=== PATIENT | male | born 1990 | race Caucasian/White ===

== ENCOUNTER 2016-04-02 10:57 | Emergency (ER) | payer OTHER ==
[2016-04-02 11:21] VITALS: TEMP 97.5
--- NOTE | 2016-04-02 11:42 | UCPHY ---
H & P Time Seen by Provider: 04/02/16 11:14 Patient Type: Established HPI/ROS: 25-year-old male presents complaining of chest pain for approximately 3 weeks. He states he missed several doses of his clonazepam about 3 weeks ago and at that time he had multiple chest muscle spasms. He states despite restarting his clonazepam he continues to have diffuse chest pain radiating to his back. He also has a history of rectal bleeding associated with polyps for which she has had multiple prior colonoscopies in states he is due for a new colonoscopy. He would like a referral to Gastroenterology for that procedure. He denies fevers or chills he denies cough he denies heavy lifting or injury to his chest. He states when he does yoga he is able to slowly stretch his chest out and sometimes relieve the chest pain. He does not take ibuprofen or NSAIDs because of his prior issues with rectal bleeding. Review of systems General no fever no chills no weakness HEENT no eye pain no eye discharge. No eye redness, no sore throat Respiratory no cough, no shortness of breath Cardiac Positivechest pain, no peripheral edema GI no abdominal pain, no diarrhea, no constipation, no nausea, no vomiting, more frequent rectal bleeding no flank pain, no hematuria, no dysuria Musculoskeletal no myalgias, no joint pain Heme no easy bruising, no easy bleeding Endo no polyuria, no polydipsia Skin no rashes, no pruritus Neuro no syncope, no dizziness, no headaches Psych is no suicidal ideation, no homicidal ideation Past Medical/Surgical History: colon polyps with rectal bleeding severe anxiety Social History: denies alcohol and drug use Smoking Status: Current every day smoker Physical Exam: 25-year-old male alert and oriented, flat affect, nontoxic appearance, afebrile HEENT atraumatic normocephalic, extraocular muscles intact, anicteric Oropharynx negative for erythema negative exudate, tolerating her own secretions Neck supple no meningismus Chest diffusely tender to palpation, no rash no ecchymoses no swelling, no crepitus Lungs clear to auscultation bilaterally Heart regular rate and rhythm without murmur rub or gallop Abdomen nondistended normoactive bowel sounds soft nontender Back no CVA tenderness, no step-offs, no spinal tenderness Extremities no cyanosis clubbing or edema Neuro alert and oriented, no focal deficits Constitutional: Initial Vital Signs Temperature (C) 36.4 C 04/02/16 11:05 Heart Rate 98 04/02/16 11:05 Respiratory Rate 18 04/02/16 11:05 Blood Pressure 141/71 H 04/02/16 11:05 O2 Sat (%) 96 04/02/16 11:05 O2 Delivery Mode Room Air Allergies/Adverse Reactions: No Known Allergies Allergy (Unverified 04/22/15 13:18) Home Medications: Medication Instructions Recorded CLONAZEPAM 04/22/15 Medical Decision Making - Diagnostics EKG Interpretation: EKG normal sinus rhythm ED Course/Re-evaluation: patient seen and evaluated for chest pain of 3 weeks duration worse with movement worse with inspiration and exquisitely tender to palpation EKG normal sinus rhythm chest x-ray negative troponin negative D-dimer negative sed rate normal impression /plan 1. musculoskeletal chest pain, possible costochondritis versus chest muscle spasm may take acetaminophen as needed for pain return if worsening, specifically high fever /severe pain/difficulty breathing 2. increasing rectal bleeding over the last several months patient be referred to Gastroenterology - Data Points Laboratory Results: Laboratory Results 04/02/16 11:30 04/02/16 11:30 04/02/16 11:30 WBC 3.76 L 10^3/uL (3.80-9.50) RBC 5.13 10^6/uL (4.40-6.38) Hgb 15.3 g/dL (13.7-17.5) Hct 44.7 % (40.0-51.0) MCV 87.1 fL (81.5-99.8) MCH 29.8 pg (27.9-34.1) MCHC 34.2 g/dL (32.4-36.7) RDW 12.6 % (11.5-15.2) Plt Count 225 10^3/uL (150-400) MPV 9.5 fL (8.7-11.7) Neut % (Auto) 55.8 % (39.3-74.2) Lymph % (Auto) 31.9 % (15.0-45.0) Morgan % (Auto) 8.8 % (4.5-13.0) Eos % (Auto) 2.7 % (0.6-7.6) Baso % (Auto) 0.5 % (0.3-1.7) Nucleat RBC Rel Count 0.0 % (0.0-0.2) Absolute Neuts (auto) 2.10 10^3/uL (1.70-6.50) Absolute Lymphs (auto) 1.20 10^3/uL (1.00-3.00) Absolute Monos (auto) 0.33 10^3/uL (0.30-0.80) Absolute Eos (auto) 0.10 10^3/uL (0.03-0.40) Absolute Basos (auto) 0.02 10^3/uL (0.02-0.10) Absolute Nucleated RBC 0.00 10^3/uL (0-0.01) Immature Gran % 0.3 % (0.0-1.1) Immature Gran # 0.01 10^3/uL (0.00-0.10) ESR 4 MM/HR (0-15) PT 13.3 SEC (12.0-15.0) INR 1.03 (0.83-1.16) APTT 32.0 SEC (23.0-38.0) D-Dimer < 0.27 ug/mLFEU (0.00-0.50) Sodium 142 mEq/L (134-144) Potassium 4.0 mEq/L (3.5-5.2) Chloride 105 mEq/L (97-110) Carbon Dioxide 25 mEq/l (22-31) Anion Gap 12 mEq/L (8-16) BUN 10 mg/dL (7-23) Creatinine 1.1 mg/dL (0.7-1.3) Estimated GFR > 60 Glucose 101 H mg/dL (70-100) Calcium 9.3 mg/dL (8.5-10.4) Total Bilirubin 0.8 mg/dL (0.1-1.4) AST 22 IU/L (17-59) ALT 33 IU/L (21-72) Alkaline Phosphatase 109 IU/L (38-126) Creatine Kinase 64 IU/L (0-224) Total Protein 7.1 g/dL (6.3-8.2) Albumin 4.1 g/dL (3.5-5.0) Departure - Departure Disposition: Home, Routine, Self-Care Clinical Impression: Costochondral chest pain, History of rectal bleeding, Scoliosis Condition: Good Instructions: Costochondritis (ED) Referrals: NONE *PRIMARY CARE P,. [Primary Care Provider] - As per Instructions Marcelino Kidd MD [Medical Doctor] - As per Instructions [facility] [Provider Group] - As per Instructions Stand Alone Forms: Work Excuse - PQRS PQRS Measurement: na
[2016-04-02 11:45] LABS: % IMMATURE GRANULYOCYTES 0.3 % (0.0-1.1); ABSOLUTE IMMATURE GRANULOCYTES 0.01 10^3/uL (0.00-0.10); ADD DIFF? NO; ADD MORPH? NO; ADD SCAN? NO; ATYPICAL LYMPHOCYTE FLAG 20 (0-99); FRAGMENT RBC FLAG 0 (0-99); HEMATOCRIT 44.7 % (40.0-51.0); HEMOGLOBIN 15.3 g/dL (13.7-17.5); LEFT SHIFT FLG 0 (0-99); LIPEMIA HEMOLYSIS FLAG 90 (0-99); MEAN CELL HEMOGLOBIN 29.8 pg (27.9-34.1); MEAN CELL HEMOGLOBIN CONCENTR. 34.2 g/dL (32.4-36.7); MEAN CELL VOLUME 87.1 fL (81.5-99.8); MEAN PLATELET VOLUME 9.5 fL (8.7-11.7); PLATELET CLUMPS FLAG 0 (0-99); PLATELET COUNT 225 10^3/uL (150-400); RED BLOOD CELL COUNT 5.13 10^6/uL (4.40-6.38); RED CELL DISTRIBUTION WIDTH 12.6 % (11.5-15.2)
[2016-04-02 11:50] LABS: INR 1.03 (0.83-1.16); PROTIME(PATIENT) 13.3 SEC (12.0-15.0)
[2016-04-02 11:56] LABS: SEDIMENTATION RATE 4 MM/HR (0-15)
[2016-04-02 11:58] LABS: ALANINE AMINOTRANSFERASE 33 IU/L (21-72); ALBUMIN 4.1 g/dL (3.5-5.0); ALKALINE PHOSPHATASE 109 IU/L (38-126); ANION GAP 12 mEq/L (8-16); ASPARTATE AMINOTRANSFERASE 22 IU/L (17-59); BILIRUBIN,TOTAL 0.8 mg/dL (0.1-1.4); CALCIUM 9.3 mg/dL (8.5-10.4); CARBON DIOXIDE 25 mEq/l (22-31); CHLORIDE 105 mEq/L (97-110); CREATININE 1.1 mg/dL (0.7-1.3); GLOMERULAR FILTRATION RATE > 60; GLUCOSE 101 mg/dL (70-100); SODIUM 142 mEq/L (134-144); TOTAL PROTEIN 7.1 g/dL (6.3-8.2)
--- NOTE | 2016-04-02 12:16 | DX ---
Chest, Two Views 1143 hours History: Chest pain. Comparison: None. Findings: Cardiac silhouette is within normal range. No pneumonia, congestive heart failure, pleura l effusion, or pneumothorax. Impression: No acute pulmonary disease.
[2016-04-02 12:45] VITALS: BP 106/65; PULSE 66; RESP 14; O2SAT 96
--- NOTE | 2016-04-02 13:23 | CPEKG ---
Heart Rate: 79 RR Interval: 759 P-R Interval: 148 QRSD Interval: 104 QT Interval: 396 QTC Interval: 455 P Mckinney: 61 QRS Mckinney: 54 T Wave Mckinney: 47 EKG Severity - NORMAL ECG - EKG Impression: SINUS RHYTHM Electronically Signed By: Marcin Schumacher 03-Apr-2016 16:53:00
== END 2016-04-02 12:45 | disposition home or self-care (01) ==
LOC: CED 10:57
DX: M94.0 Chondrocostal junction syndrome [Tietze] (principal); K62.5 Hemorrhage of anus and rectum; F41.9 Anxiety disorder, unspecified; Z72.0 Tobacco use
CPT/HCPCS: 71020-PO; 80053-PO; 82550-PO; 85025-PO; 85378-PO; 85610-PO; 85652-PO; 85730-PO; 93010-PO; 99215-PO; G0463-PO

== ENCOUNTER 2016-05-04 11:14 | Emergency (ER) | payer SELFPAY ==
[2016-05-04 11:33] VITALS: BP 110/74; PULSE 86; RESP 18; TEMP 98.2; O2SAT 97
[2016-05-04] MEDS ORDERED: DEXAMETHASONE 4 MG TAB PO ONE (12:10)
--- NOTE | 2016-05-04 12:10 | EDPHY ---
H & P Stated Complaint: sore throat, cough, fever since friday Time Seen by Provider: 05/04/16 11:37 HPI/ROS: Chief complaint: Sick for the last 5 days History of present illness: This is a 25-year-old male who presents to the emergency department reporting he has been sick for the last 5 days. He primarily reports a sore throat. He has had fever and cough is well. he is using [id number] cold medications with minimal improvement. Denies other associated signs or symptoms including no difficulty breathing, no rash. - Personal History Current Tetanus/Diphtheria Vaccine: No Current Tetanus Diphtheria and Acellular Pertussis (TDAP): No - Medical/Surgical History Hx Asthma: Yes Hx Chronic Respiratory Disease: No Hx Diabetes: No Hx Cardiac Disease: No Hx Renal Disease: No Hx Cirrhosis: No Hx Alcoholism: No Hx HIV/AIDS: No Hx Splenectomy or Spleen Trauma: No Other PMH: PSH: colonoscopy; EGD; wisdom teeth;. PMH: scoliosis; L3-L4 fx; L wrist fx x2; R wrist fx x 2; L ankle inj; anxiety - Social History Smoking Status: Former smoker - Physical Exam Exam: General Appearance: Alert, nontoxic. Eyes: Pupils equal and round no injection. ENT: Tympanic membranes, external auditory canals, external ears and surrounding soft tissue including over the mastoids are unremarkable. Nasopharynx is not injected. There is no rhinorrhea. Oropharynx is injected. There is mild edema. There is trace exudate. Left tonsil is slightly more full than right tonsil. The uvula is midline. No elevation of the tongue. There is no hoarseness, no drooling, no trismus, no stridor. Respiratory: Chest is non tender, lungs are clear to auscultation. Cardiac: regular rate and rhythm Musculoskeletal: Neck is supple and non tender. Extremities have full range of motion and are non tender. Skin: No rashes or lesions. Neurological: No meningismus. Constitutional: Initial Vital Signs Temperature (C) 36.8 C 05/04/16 11:31 Heart Rate 86 05/04/16 11:31 Respiratory Rate 18 05/04/16 11:31 Blood Pressure 110/74 05/04/16 11:31 O2 Sat (%) 97 05/04/16 11:31 O2 Delivery Mode Room Air Allergies/Adverse Reactions: No Known Allergies Allergy (Unverified 04/22/15 13:18) Home Medications: Medication Instructions Recorded CLONAZEPAM 04/22/15 ALPRAZolam 05/04/16 AMOXICILLIN TRIHYDRATE [Amoxil] 875 mg PO BID 10 Days 05/04/16 Hydrocodone/Acetaminophen [Lortab 10 ml PO Q6 #120 ml 05/04/16 10 mg-300 mg/15 ml Elxr] Medical Decision Making ED Course/Re-evaluation: Patient seen under the supervision of my secondary supervising physician Dr. Ray Jacome. Patient presents to the emergency department for persistent cold symptoms, primarily a sore throat. On presentation he is nontoxic. Strep swab is positive. There is slight fullness of the left tonsils as compared to the right although, I do not believe this represents no overt peritonsillar abscess - the oropharynx is largely patent, there is no hoarseness, no drooling, no trismus or stridor. He is given Decadron for symptom control. He is started on amoxicillin. Home care is discussed. He is asked to follow up with an Ears Nose and Throat doctor for recheck. Strict return precautions are given. Patient voiced understanding and agreement with plan. Differential Diagnosis: Included but not limited to pharyngitis, strep pharyngitis, tonsillitis, peritonsillar abscess, retropharyngeal abscess, Elliott's angina, meningitis - Data Points Laboratory Results: 05/04/16 11:42 Group A Strep Screen POSITIVE H (NEGATIVE) Medications Given: Discontinued Medications Dexamethasone (Decadron) 10 mg PO EDNOW ONE Stop: 05/04/16 12:11 Last Admin: 05/04/16 12:16 Dose: 10 mg Departure - Departure Disposition: Home, Routine, Self-Care Clinical Impression: Strep pharyngitis Condition: Good Instructions: Strep Throat (ED) Additional Instructions: Follow-up with the primary care doctor or ears Nose and Throat doctor for continued evaluation and care If symptoms worsen or new symptoms develop return to the emergency department for recheck Referrals: NONE *PRIMARY CARE P,. [Primary Care Provider] - As per Instructions Vanessa Billingsley MD [Medical Doctor] - As per Instructions [facility] [Outside] - As per Instructions Prescriptions: AMOXICILLIN TRIHYDRATE [Amoxil] 875 mg PO BID 10 Days Hydrocodone/Acetaminophen [Lortab 10 mg-300 mg/15 ml Elxr] 10 ml PO Q6 #120 ml
== END 2016-05-04 12:30 | disposition home or self-care (01) ==
DX: J02.0 Streptococcal pharyngitis (principal); J45.909 Unspecified asthma, uncomplicated; Z87.891 Personal history of nicotine dependence

== ENCOUNTER 2016-05-14 07:29 | Emergency (ER) | payer MEDICAID, OTHER ==
[2016-05-14 07:33] VITALS: BP 104/67; PULSE 71; RESP 16; TEMP 97.5; O2SAT 92
--- NOTE | 2016-05-14 07:35 | EDPHY ---
H & P Stated Complaint: dx w/ strep last week, lost his Rx- not better Time Seen by Provider: 05/14/16 07:34 HPI/ROS: CHIEF COMPLAINT: Persistent throat pain, cough, nasal irritation HISTORY OF PRESENT ILLNESS: The patient presents to the ED with complaints of persistent throat pain following a diagnosis of strep pharyngitis 2 weeks ago. Additionally the patient has developed a harsh cough over the past several days. He also complains of bilateral nasal irritation. The patient was given a prescription for amoxicillin which he took for 2-3 days before he unfortunately lost the prescription. The patient has been using Tylenol and ibuprofen for control of his pain which has been minimally effective. The patient does have some asymmetric swelling in the left posterior pharynx. The patient denies fever or significant trismus. REVIEW OF SYSTEMS: A comprehensive 10 point review of systems is otherwise negative aside from elements mentioned in the history of present illness. Source: Patient Exam Limitations: No limitations - Personal History Current Tetanus/Diphtheria Vaccine: Unsure Current Tetanus Diphtheria and Acellular Pertussis (TDAP): Unsure - Medical/Surgical History Hx Asthma: Yes Hx Chronic Respiratory Disease: No Hx Diabetes: No Hx Cardiac Disease: No Hx Renal Disease: No Hx Cirrhosis: No Hx Alcoholism: No Hx HIV/AIDS: No Hx Splenectomy or Spleen Trauma: No Other PMH: PSH: colonoscopy; EGD; wisdom teeth;. PMH: scoliosis; L3-L4 fx; L wrist fx x2; R wrist fx x 2; L ankle inj; anxiety - Social History Smoking Status: Never smoked Alcohol Use: None - Physical Exam Exam: General Appearance: Alert, no distress Eyes: Pupils equal and round no pallor or injection ENT, Mouth: Left tonsillar hypertrophy, minimal erythema, scant exudate, no evidence of peritonsillar mass. Nasal mucosa erythematous. Respiratory: There are no retractions, lungs are clear to auscultation Cardiovascular: Regular rate and rhythm Gastrointestinal: Abdomen is soft and nontender, no masses, bowel sounds normal Neurological: A&O, normal motor function, normal sensory exam, normal cranial nerves Skin: Warm and dry, no rashes Musculoskeletal: Neck is supple nontender Extremities: symmetrical, full range of motion Constitutional: Initial Vital Signs Temperature (C) 36.4 C 05/14/16 07:30 Heart Rate 71 05/14/16 07:30 Respiratory Rate 16 05/14/16 07:30 Blood Pressure 104/67 05/14/16 07:30 O2 Sat (%) 92 05/14/16 07:30 O2 Delivery Mode Room Air Allergies/Adverse Reactions: No Known Allergies Allergy (Unverified 04/22/15 13:18) Home Medications: Medication Instructions Recorded CLONAZEPAM 04/22/15 ALPRAZolam 05/04/16 AMOXICILLIN TRIHYDRATE [Amoxil] 875 mg PO BID 10 Days 05/04/16 Hydrocodone/Acetaminophen [Lortab 10 ml PO Q6 #120 ml 05/04/16 10 mg-300 mg/15 ml Elxr] Albuterol [Ventolin Hfa Inhaler] 2 puffs IH QID PRN #1 mdi 05/14/16 Dexamethasone [Decadron 4 MG (*)] 4 mg PO BID #2 tab 05/14/16 Guaifenesin/Codeine Phosphate 10 ml PO HS PRN #100 ml 05/14/16 [Guaifenesin-Codeine Liquid] Penicillin V Potassium [Pen Vk] 500 mg PO TID #21 tab 05/14/16 Medical Decision Making ED Course/Re-evaluation: I reviewed the patient's past medical records. The patient was seen in the emergency department on the 04 of May in diagnosed with strep pharyngitis. At that point time he was provided a prescription for antibiotics for amoxicillin. The patient was also given a prescription for hydrocodone. In the emergency department today, the patient does have some asymmetric tonsillar hypertrophy but no obvious peritonsillar abscess. Patient will be restarted on amoxicillin. He is also given a prescription for a single dose of Decadron. Given the asymmetry of his tonsils, I would like him to follow up with ENT for a recheck in the next 1-2 days. He has been referred to the ENT physician that he was initially referred to in our emergency department. Departure - Departure Disposition: Home, Routine, Self-Care Clinical Impression: Acute pharyngitis, Bronchitis Condition: Good Instructions: Pharyngitis (ED) Additional Instructions: 1. Take antibiotics as directed for treatment of strep throat. 2. Please follow up with the Ear Nose Throat physician you have been referred to for a recheck in the next 1-2 days to ensure a more serious infection such as abscess is not developing. 3. Please return to the ED for markedly worsening symptoms or other concerns. 4. Please take Decadron as prescribed for swelling and pain. 5. Please use inhaler as needed up to every 4 hours for cough. 6. Please use cough suppressant as needed. Referrals: Vanessa Billingsley MD [Medical Doctor] - As per Instructions
== END 2016-05-14 07:57 | disposition home or self-care (01) ==
DX: J02.9 Acute pharyngitis, unspecified (principal); J40 Bronchitis, not specified as acute or chronic

== ENCOUNTER 2016-06-29 19:16 | Emergency (ER) | payer MEDICAID ==
--- NOTE | 2016-06-29 19:46 | EDPHY ---
H & P Time Seen by Provider: 06/29/16 19:18 HPI/ROS: CHIEF COMPLAINT: Hemoptysis HISTORY OF PRESENT ILLNESS: This patient is a 26 year old male who presents to the Emergency Department complaining of acute productive cough beginning yesterday afternoon with a few episodes of hemoptysis over that time. He describes streaks of blood within the mucous produced when he coughs. He also reports nausea. He denies fever, chills, body aches, or weakness. Medical history includes asthma; he used his inhaler just prior to arrival. REVIEW OF SYSTEMS: Constitutional: No fever, no chills Eyes: No visual changes ENT: No sore throat Respiratory: As in HPI Cardiac: No chest pain Gastrointestinal: No nausea, no vomiting, no abdominal pain Genitourinary: +blood in stool over past two weeks; history of colonoscopy with polyp removal; no hematuria, no dysuria Musculoskeletal: No leg pain or swelling Skin: No rash Neurological: No headache, no numbness, no weakness Psychiatric: No depression Past Medical/Surgical History: Prior medical records reviewed including visit to the ED for pharyngitis 2016. PMH includes: asthma, scoliosis, L3-L4 fracture, left wrist fracture, right wrist fracture, left ankle injury, anxiety. PSH includes: colonoscopy with polyp removal, EGD, wisdom teeth removal. Colonoscopy is scheduled for later this month. Social History: No tobacco use. Smokes marijuana. Smoking Status: Never smoked Physical Exam: General Appearance: Alert, nontoxic appearing Eyes: Pupils equal and round, no conjunctival pallor or injection ENT, Mouth: Mucous membranes moist Neck: Normal inspection Respiratory: Scattered expiratory wheezing Cardiovascular: Regular rate and rhythm Gastrointestinal: Abdomen is soft and non-tender Neurological: A&O, nonfocal, normal gait Skin: Warm and dry, no rash Extremities: Nontender, no pedal edema Psychiatric: Flat affect Constitutional: Initial Vital Signs Temperature (C) 36.3 C 06/29/16 19:18 Heart Rate 66 06/29/16 19:18 Respiratory Rate 16 06/29/16 19:18 Blood Pressure 123/66 H 06/29/16 19:18 O2 Sat (%) 97 06/29/16 19:18 O2 Delivery Mode Room Air Allergies/Adverse Reactions: No Known Allergies Allergy (Verified 06/29/16 19:21) Home Medications: Medication Instructions Recorded CLONAZEPAM 04/22/15 ALPRAZolam 05/04/16 Albuterol [Ventolin Hfa Inhaler] 2 puffs IH QID PRN #1 mdi 05/14/16 Albuterol 2 puffs IH TID PRN #1 aerosol 06/29/16 Azithromycin [Zithromax] 250 mg PO DAILY #6 tab 06/29/16 predniSONE 1 tab PO DAILY #15 tab 06/29/16 Medical Decision Making - Diagnostics Imaging: Imaging Impressions Chest X-Ray 06/29/16 19:18 Impression: Minimal airways disease. Otherwise normal. ED Course/Re-evaluation: This 26 year old presents with progressive cough including recent episodes of hemoptysis beginning yesterday. He also describes nausea and vomiting made worse by his cough. His exam is significant for expiratory wheezing. He is otherwise well-appearing with stable vital signs. His O2 saturation is 97% on room air. I am suspicious of mild bronchitis. Will proceed with chest x-ray. Chest x-ray is suggestive of mild bronchitis. I discussed imaging results with the patient. 60mg PO prednisone and 3ml IH Albuterol breathing treatment administered. The patient is discharged home in good condition with outpatient referral to a primary care provider and course of Azithromycin for treatment of bronchitis/ pneumonia. He understands return precautions and is agreeable to this treatment plan. - Data Points Medications Given: Discontinued Medications Albuterol/Ipratropium (Duoneb) 3 ml IH EDNOW ONE Stop: 06/29/16 20:10 Last Admin: 06/29/16 20:10 Dose: 3 ml Prednisone (Prednisone) 60 mg PO EDNOW ONE Stop: 06/29/16 20:10 Last Admin: 06/29/16 20:24 Dose: 60 mg Departure - Departure Disposition: Home, Routine, Self-Care Clinical Impression: Hemoptysis Acute bronchitis Qualifiers: Bronchitis organism: other organism Qualified Code(s): J20.8 - Acute bronchitis due to other specified organisms Condition: Good Instructions: Acute Bronchitis (ED), Hemoptysis (ED) Additional Instructions: 1. Establish care with a primary care provider. You have referred you to our on- call PCP. We have also referred you to or ENT specialist on-call. 2. Continue to use your inhaler as needed for difficulty breathing and cough. 3. Take the full course of your antibiotics as prescribed. 4. Return to the Emergency Department with difficulty breathing, chest pain, large volume of blood produced by cough, uncontrollable vomiting, uncontrollable high fever, or other serious concerns. Referrals: Camila Escalante [Other] - As per Instructions Prescriptions: Albuterol 2 puffs IH TID PRN #1 aerosol PRN Reason: cough Azithromycin [Zithromax] 250 mg PO DAILY #6 tab predniSONE 1 tab PO DAILY #15 tab Report Scribed for: Yudi Keith Report Scribed by: Antoinette Caputo Date of Report: 06/29/16 Time of Report: 19:45 Physician Review and Approval Statement: 06/29/16 19:45 Portions of this note were transcribed by a medical physicist. I personally performed a history, physical exam, medical decision making, and confirmed accuracy of information the transcribed note.
[2016-06-29] MEDS ORDERED: IPRATROPIUM/ALBUTEROL 3 ML DEYVIAL ONE (20:07)
[2016-06-29] MEDS ORDERED: IPRATROPIUM/ALBUTEROL 3 ML DEYVIAL IH ONE (20:09)
[2016-06-29] MEDS ORDERED: predniSONE 20 MG TAB PO ONE (20:09)
[2016-06-29 20:29] VITALS: BP 131/72; PULSE 72; RESP 20; TEMP 98.1; O2SAT 94
== END 2016-06-29 20:33 | disposition home or self-care (01) ==
DX: R04.2 Hemoptysis (principal); J20.8 Acute bronchitis due to other specified organisms; J45.909 Unspecified asthma, uncomplicated

== ENCOUNTER 2016-07-10 10:23 | Day surgery (SDC) | payer MEDICAID ==
[2016-07-10] MEDS ORDERED: LIDOCAINE 1% 2 ML INJ ONE (10:51)
[2016-07-10] MEDS ORDERED: LIDOCAINE 1% 2 ML INJ ID PRN (11:09)
[2016-07-10] MEDS ORDERED: LR 1,000 ML IV SCH (11:30)
[2016-07-10] MEDS ORDERED: PROPOFOL/EMULSION 500 MG/50 ML BOTTLE IV ONE (11:58)
[2016-07-10] MEDS ORDERED: MIDAZOLAM 2 MG/2 ML VIAL ONE (11:58)
[2016-07-10] MEDS ORDERED: LIDOCAINE 2% 5 ML SDV ONE (12:02)
[2016-07-10] MEDS ORDERED: ONDANSETRON 4 MG/2 ML VIAL ONE (12:38)
[2016-07-10] MEDS ORDERED: fentaNYL 100 MCG/2 ML INJ ONE (13:14)
--- NOTE | 2016-07-10 14:02 | GPN ---
[f rep st] PROCEDURE NOTE DATE OF PROCEDURE: 07/10/2016 PROCEDURE: 1. Esophagogastroduodenoscopy and biopsy. 2. Colonoscopy and biopsy. INDICATIONS: 1. Abdominal pain, nausea, vomiting. 2. Personal history of colon polyps. PREPROCEDURE DIAGNOSIS: Rule out peptic ulcer disease, rule out polyps. POSTOPERATIVE DIAGNOSIS: 1. Moderate gastritis with small erosions and punctate heme. 2. Normal esophagus, normal duodenum. 3. Small 2 mm rectal polyp, removed in total by cold biopsy. 4. Otherwise normal colonoscopy. INFORMED CONSENT: I did discuss with the patient regarding the procedure, alternatives, benefits, a nd risks, including bleeding, perforation, infection, risk of medication. Informed consent was sign ed and witnessed. COMPLICATIONS: None immediate. MEDICATIONS: IV general as per Jina Gaines MD. DESCRIPTION OF PROCEDURE: After adequate sedation, patient was in left lateral decubitus position. The forward-viewing upper endoscope was inserted in oropharynx and advanced under direct visualizat ion down the esophagus. The esophageal mucosa was normal. The endoscope was advanced in the stomac h. There were areas of erosions and punctate heme. This was distributed through the antrum and bod y of the stomach. There were no large ulcerations. The pylorus was normal. The duodenal bulb and sweep were normal. The endoscope was withdrawn back in the stomach and biopsies were taken from the body and the antrum for histologic evaluation. The endoscope was then retroflexed, looking at the top of the stomach. The endoscope was unretroflexed and withdrawn, confirming the above findings. The patient tolerated the procedure well, was repositioned for colonoscopy. Colonoscopy procedure report: The patient remained in left lateral decubitus position. A visual an d digital anorectal examination was performed. The video colonoscope was inserted via the rectum an d advanced under direct visualization to the terminal ilium and identified the ileocecal valve, appe ndiceal orifice, and confluence of tinea. Upon withdrawal of the instrument, careful attention was paid to mucosal detail. The prep was very good. There was 1 small 2 mm polyp noted in the rectum. It was removed in total by cold biopsy. There were no other polyps or masses, colitis or diverticu losis noted. The endoscope was then completely withdrawn, confirming the above findings. The patie nt tolerated the procedure well and was transferred to the recovery room in satisfactory condition. IMPRESSION: 1. Moderate gastritis. 2. Normal esophagus and duodenum. 3. 2 mm rectal polyp, otherwise normal colonoscopy. RECOMMENDATIONS: 1. Follow up pathology. 2. Start PPI therapy half an hour to an hour before breakfast. Can use pantoprazole 40 mg or omepr azole 40 mg. In addition, add ranitidine 300 mg q.h.s. 3. Antireflux lifestyle changes. 4. Try to avoid aspirin and anti-inflammatory drugs. 5. Follow up pathology of polyp. If adenomatous, repeat colonoscopy in 5 years. If the polyp is n ot adenomatous, I need to get his old reports and review to see if he had a true pre-cancerous polyp removed. If he had polyps and had no cancer potential, then the interval will be longer than 5 yea rs. If he had a polyp previously removed with cancer potential, then the interval will be 5 years. 6. High-fiber, high-fluid diet. 7. Follow up with myself in approximately 6-8 weeks. 8. Follow up with primary care physician as scheduled. Thank you for allowing me to participate in the patient's healthcare. Do not hesitate to call me wi th questions. /[id number]/MODL
== END 2016-07-10 13:51 | disposition home health service (06) ==
LOC: FSGY 10:23
PROVIDERS: ATTEND Internal Medicine Gastroenterology
DX: K62.1 Rectal polyp (principal); K29.70 Gastritis, unspecified, without bleeding
CPT/HCPCS: J2250; J2405; J2704; J3010

== ENCOUNTER 2016-07-30 08:05 | Emergency (ER) | payer MEDICAID ==
[2016-07-30 08:38] LABS: LEUKOCYTE ESTERASE,URINE NEGATIVE (NEGATIVE); NITRITE,URINE NEGATIVE (NEGATIVE)
[2016-07-30 08:40] LABS: COLOR AMBER
--- NOTE | 2016-07-30 08:40 | EDPHY ---
HPI/HX/ROS/PE/MDM Narrative: CHIEF COMPLAINT: Facial lesion HPI: This patient is a 26 year old male who presents to the Emergency Department with a facial lesion to his left cheek presenting last night. He describes mild pain surrounding the lesion with swelling to his left anterior neck. He describes a similar lesion to his right hip presenting last night as well. He denies fever or chills. Medical history includes prior staph infections that he describes as presenting similar to his facial lesion today. REVIEW OF SYSTEMS: Aside from elements discussed in the HPI, a comprehensive 10-point review of systems was reviewed and is negative apart from one additional complaint of dark brown urine first presenting yesterday afternoon. The patient reports that he has remained well-hydrated without improvement to the urine discoloration. PMH: History of colon polyps. Colonoscopy last month. Gastritis, peptic ulcer. Staph infections. SOCIAL HISTORY: No IV drug use. PHYSICAL EXAM: General:Patient is alert, in no acute distress. ENT:Eyes are normal to inspection. ENT inspection normal. Neck: Normal inspection. Full range of motion. Left anterior lymphadenopathy. Respiratory:No respiratory distress. Breath sounds normal bilaterally. Cardiovascular: Regular rate and rhythm. Strong peripheral pulses. Normal cap refill. Abdomen:The abdomen is nontender to palpation. There are no peritoneal signs. There are normal bowel sounds. Back: Normal to inspection. No tenderness to palpation. Skin: Abscess measuring 1cm in diameter on left cheek. Small non-fluctuant skin lesion to right hip. Skin is otherwise warm, dry, and normal in color. Extremities: Normal appearance. Full range of motion. Neuro: Oriented x3. Normal motor function. Normal sensory function. ED Course: This 26 year old male presents with complaints of left cheek and right hip lesions presenting yesterday. He has a history of staph infections that allegedly presented similarly. His left cheek abscess has the appearance of a staph infection. He also has mild left anterior lymphadenopathy. He is afebrile. I discussed with him my recommendation to treat suspected staph infections with antibiotics. Labs obtained and are within normal limits. WBC is not elevated. The patient also complains of gagandeep colored urine beginning yesterday despite adequate hydration. He has no additional urinary complaints. UA obtained. I discussed results with the patient as well as planned urology follow-up. He expresses agreement to this treatment plan. He will be discharged home in good condition. MDM: This patient presents with facial abscess as well as hematuria. The patient has a history of similar abscesses. I discussed options with him, including I/ D here in the ED, but am hesitant to do so given presence on the face. The patient would prefer to try a course of antibiotics first. Additionally, the patient has hematuria but denies abdominal or flank pain. The etiology of this is unclear but may be secondary to UTI, in which case Keflex should cover this. UTIs are certainly uncommon in a young male, but patient states he has had blood in his urine several times before. I have referred him to Urology. He requested a note saying that he did not have to urinate for his court-mandated urine drug screen tests secondary to the hematuria, but I told him I was unable to do this. - Data Points Laboratory Results: Laboratory Results 07/30/16 08:52 07/30/16 08:52 07/30/16 07/30/16 07/30/16 08:52 08:52 08:52 WBC 5.98 10^3/uL 10^3/uL (3.80-9.50) RBC 5.32 10^6/uL 10^6/uL (4.40-6.38) Hgb 15.5 g/dL g/dL (13.7-17.5) Hct 46.0 % % (40.0-51.0) MCV 86.5 fL fL (81.5-99.8) MCH 29.1 pg pg (27.9-34.1) MCHC 33.7 g/dL g/dL (32.4-36.7) RDW 13.2 % % (11.5-15.2) Plt Count 204 10^3/uL 10^3/uL (150-400) MPV 9.5 fL fL (8.7-11.7) Neut % (Auto) 44.9 % % (39.3-74.2) Lymph % (Auto) 42.1 % % (15.0-45.0) [place] % (Auto) 9.4 % % (4.5-13.0) Eos % (Auto) 2.7 % % (0.6-7.6) Baso % (Auto) 0.7 % % (0.3-1.7) Nucleat RBC Rel Count 0.0 % % (0.0-0.2) Absolute Neuts (auto) 2.69 10^3/uL 10^3/uL (1.70-6.50) Absolute Lymphs (auto) 2.52 10^3/uL 10^3/uL (1.00-3.00) Absolute Monos (auto) 0.56 10^3/uL 10^3/uL (0.30-0.80) Absolute Eos (auto) 0.16 10^3/uL 10^3/uL (0.03-0.40) Absolute Basos (auto) 0.04 10^3/uL 10^3/uL (0.02-0.10) Absolute Nucleated RBC 0.00 10^3/uL 10^3/uL (0-0.01) Immature Gran % 0.2 % % (0.0-1.1) Immature Gran # 0.01 10^3/uL 10^3/uL (0.00-0.10) PT 13.7 SEC SEC (12.0-15.0) INR 1.06 (0.83-1.16) Sodium 143 mEq/L mEq/L (134-144) Potassium 3.9 mEq/L mEq/L (3.5-5.2) Chloride 106 mEq/L mEq/L (97-110) Carbon Dioxide 23 mEq/l mEq/l (22-31) Anion Gap 14 mEq/L mEq/L (8-16) BUN 13 mg/dL mg/dL (7-23) Creatinine 0.9 mg/dL mg/dL (0.7-1.3) Estimated GFR > 60 Glucose 85 mg/dL mg/dL (70-100) Calcium 9.4 mg/dL mg/dL (8.5-10.4) Total Bilirubin 0.9 mg/dL mg/dL (0.1-1.4) Conjugated Bilirubin 0.3 mg/dL mg/dL (0.0-0.5) Unconjugated Bilirubin 0.6 mg/dL mg/dL (0.0-1.1) AST 19 IU/L IU/L (17-59) ALT 22 IU/L IU/L (21-72) Alkaline Phosphatase 69 IU/L IU/L (38-126) Total Protein 7.5 g/dL g/dL (6.3-8.2) Albumin 4.7 g/dL g/dL (3.5-5.0) Urine Color Urine Appearance Urine pH Ur Specific [place] Urine Protein Urine Ketones Urine Blood Urine Nitrate Urine Bilirubin Urine Urobilinogen Ur Leukocyte Esterase Urine RBC Urine WBC Ur Epithelial Cells Urine Bacteria Urine Yeast Urine Glucose 07/30/16 08:30 WBC RBC Hgb Hct MCV MCH MCHC RDW Plt Count MPV Neut % (Auto) Lymph % (Auto) [place] % (Auto) Eos % (Auto) Baso % (Auto) Nucleat RBC Rel Count Absolute Neuts (auto) Absolute Lymphs (auto) Absolute Monos (auto) Absolute Eos (auto) Absolute Basos (auto) Absolute Nucleated RBC Immature Gran % Immature Gran # PT INR Sodium Potassium Chloride Carbon Dioxide Anion Gap BUN Creatinine Estimated GFR Glucose Calcium Total Bilirubin Conjugated Bilirubin Unconjugated Bilirubin AST ALT Alkaline Phosphatase Total Protein Albumin Urine Color GAGANDEEP Urine Appearance MODERATELY TURBID Urine pH 5.0 (5.0-7.5) Ur Specific [place] 1.020 (1.002-1.030) Urine Protein 2+ H (NEGATIVE) Urine Ketones NEGATIVE (NEGATIVE) Urine Blood 3+ H (NEGATIVE) Urine Nitrate NEGATIVE (NEGATIVE) Urine Bilirubin NEGATIVE (NEGATIVE) Urine Urobilinogen NEGATIVE EU EU (0.2-1.0) Ur Leukocyte Esterase NEGATIVE (NEGATIVE) Urine RBC 50-182 /hpf H /hpf (0-3) Urine WBC 5-10 /hpf H /hpf (0-3) Ur Epithelial Cells NONE SEEN /lpf /lpf (NONE-1+) Urine Bacteria 3+ /hpf H /hpf (NONE SEEN) Urine Yeast PRESENT /hpf /hpf (NONE SEEN) Urine Glucose NEGATIVE (NEGATIVE) General Time Seen by Provider: 07/30/16 08:23 Initial Vital Signs: Initial Vital Signs Temperature (C) 36.7 C 07/30/16 08:08 Heart Rate 64 07/30/16 08:08 Respiratory Rate 16 07/30/16 08:08 Blood Pressure 116/80 07/30/16 08:08 O2 Sat (%) 97 07/30/16 08:08 O2 Delivery Mode Room Air Allergies/Adverse Reactions: No Known Allergies Allergy (Verified 07/30/16 08:11) Home Medications: Medication Instructions Recorded CLONAZEPAM 04/22/15 Albuterol 07/09/16 Cephalexin [Keflex] 500 mg PO Q6H #28 cap 07/30/16 Departure - Departure Disposition: Home, Routine, Self-Care Clinical Impression: Staph infection, Hematuria Condition: Good Instructions: Urinary Tract Infection in Men (ED), Cellulitis (ED) Additional Instructions: 1. Take the full course of Keflex as prescribed to treat your infection. 2. Follow-up with a urologist in 3-5 days if your symptoms do not resolve before then. We have referred you to Dr. Ron Stubbs. 3. Return to the Emergency Department in 48 hours if your facial wound does not get better. Please also return if you experience fever or chills, difficulty urinating, abdominal or low back pain, increasing number of skin lesions, discharge from your skin wounds, or for other serious concerns. Referrals: Gela Stubbs MD [Medical Doctor] - As per Instructions Prescriptions: Cephalexin [Keflex] 500 mg PO Q6H #28 cap Report Scribed for: Erick Henry Report Scribed by: Antoinette Caputo Date of Report: 07/30/16 Time of Report: 08:40 Physician Review and Approval Statement: Portions of this note were transcribed by an ED scribe. I personally performed the history, physical exam, and medical decision making; and confirm the accuracy of the information in the transcribed note.
[2016-07-30 08:46] LABS: BACTERIA 3+ /hpf (NONE SEEN); RBC,URINE 50-182 /hpf (0-3); YEAST PRESENT /hpf (NONE SEEN)
[2016-07-30 09:01] LABS: % IMMATURE GRANULYOCYTES 0.2 % (0.0-1.1); ABSOLUTE IMMATURE GRANULOCYTES 0.01 10^3/uL (0.00-0.10); ADD DIFF? NO; ADD MORPH? NO; ADD SCAN? NO; ATYPICAL LYMPHOCYTE FLAG 20 (0-99); FRAGMENT RBC FLAG 0 (0-99); HEMOGLOBIN 15.5 g/dL (13.7-17.5); LEFT SHIFT FLG 10 (0-99); LIPEMIA HEMOLYSIS FLAG 80 (0-99); MEAN CELL HEMOGLOBIN 29.1 pg (27.9-34.1); MEAN CELL HEMOGLOBIN CONCENTR. 33.7 g/dL (32.4-36.7); MEAN CELL VOLUME 86.5 fL (81.5-99.8); MEAN PLATELET VOLUME 9.5 fL (8.7-11.7); PLATELET CLUMPS FLAG 10 (0-99); PLATELET COUNT 204 10^3/uL (150-400); RED BLOOD CELL COUNT 5.32 10^6/uL (4.40-6.38); RED CELL DISTRIBUTION WIDTH 13.2 % (11.5-15.2)
[2016-07-30 09:15] LABS: INR 1.06 (0.83-1.16); PROTIME(PATIENT) 13.7 SEC (12.0-15.0)
[2016-07-30 09:23] LABS: ALANINE AMINOTRANSFERASE 22 IU/L (21-72); ALBUMIN 4.7 g/dL (3.5-5.0); ALKALINE PHOSPHATASE 69 IU/L (38-126); ANION GAP 14 mEq/L (8-16); ASPARTATE AMINOTRANSFERASE 19 IU/L (17-59); BILIRUBIN,TOTAL 0.9 mg/dL (0.1-1.4); BILIRUBIN-CONJUGATED 0.3 mg/dL (0.0-0.5); BILIRUBIN-UNCONJUGATED 0.6 mg/dL (0.0-1.1); CALCIUM 9.4 mg/dL (8.5-10.4); CARBON DIOXIDE 23 mEq/l (22-31); CHLORIDE 106 mEq/L (97-110); CREATININE 0.9 mg/dL (0.7-1.3); GLOMERULAR FILTRATION RATE > 60; GLUCOSE 85 mg/dL (70-100); POTASSIUM 3.9 mEq/L (3.5-5.2); SODIUM 143 mEq/L (134-144); TOTAL PROTEIN 7.5 g/dL (6.3-8.2)
[2016-07-30 10:02] VITALS: BP 116/81; PULSE 54; RESP 14; TEMP 97.9; O2SAT 96
== END 2016-07-30 10:02 | disposition home or self-care (01) ==
DX: R31.9 Hematuria, unspecified (principal); B95.8 Unspecified staphylococcus as the cause of diseases classified elsewhere

== ENCOUNTER 2016-09-11 15:35 | Emergency (ER) | payer MEDICAID ==
--- NOTE | 2016-09-11 16:10 | EDPHY ---
H & P Time Seen by Provider: 09/11/16 15:58 HPI/ROS: CHIEF COMPLAINT: Right elbow and wrist injury HISTORY OF PRESENT ILLNESS: 26-year-old male presents to the emergency department by private vehicle complaining of pain in his right wrist and elbow after he fell off his skateboard. Patient states 1 week ago he fell off his skateboard and sustained injury to his right wrist and elbow. He states that he just applied an Radu wrap and thought it would get better. He then fell again 2 days ago skateboarding re-injuring his right wrist and elbow. He now has pain with any kind of range of motion of the wrist or elbow. He is right- hand dominant. He has previous history of right wrist and right elbow fracture from 8 months ago. He did not require surgery. He states that he will completely and he was able to get back to playing basketball. He believes his tetanus shot is current. ROS: Denies numbness or tingling in his fingers, pain in his right shoulder. Past Medical/Surgical History: Right wrist and right radial head fracture a month ago treated non operatively Social History: Single Smoking Status: Current some day smoker Physical Exam: Examination of the right elbow reveals some slight swelling. Diffusely tender to palpate the right elbow. He has a healing abrasion to the posterior aspect of the right elbow overlying the olecranon. He has full flexion and limited extension of the right elbow. He is able to fully supinate although this does cause pain. He has diffuse pain with palpation his right wrist. There is no swelling in the wrist. He has full range of motion of his fingers. He has normal sensation to light touch in the fingers. Strong radial pulse at the right wrist. Right humerus and shoulder are nontender. Constitutional: Initial Vital Signs Temperature (C) 36.7 C 09/11/16 15:37 Heart Rate 75 09/11/16 15:37 Respiratory Rate 16 09/11/16 15:37 Blood Pressure 124/82 H 09/11/16 15:37 O2 Sat (%) 98 09/11/16 15:37 O2 Delivery Mode Room Air Allergies/Adverse Reactions: No Known Allergies Allergy (Verified 09/11/16 15:41) Home Medications: Medication Instructions Recorded CLONAZEPAM 04/22/15 Albuterol 07/09/16 MDM/Departure - MDM Imaging: I viewed and interpreted images myself Procedures: Patient was placed in a sling for comfort and support and examined post application in good placement with normal [employer]. ED Course/Re-evaluation: 26-year-old male presents to the emergency department with right elbow and right wrist pain. X-rays reveal no fractures. He was placed in a sling and given orthopedic referral. The patient was also requesting primary care referral. - Depart Disposition: Home, Routine, Self-Care Clinical Impression: Right wrist sprain Qualifiers: Encounter type: initial encounter Qualified Code(s): S63.501A - Unspecified sprain of right wrist, initial encounter Sprain of right elbow Qualifiers: Encounter type: initial encounter Qualified Code(s): S53.401A - Unspecified sprain of right elbow, initial encounter Condition: Good Instructions: Wrist Sprain (ED), Elbow Sprain (ED) Additional Instructions: Sling for comfort and support. Ibuprofen 600 mg every 8 hours as needed for pain. Follow up with orthopedic surgeon in 1 week to recheck. Referrals: Gustabo Horner MD [Medical Doctor] - 5-7 days, call for appt. (Orthopedic surgeon on-call) Dedrick Rodriguez MD [Medical Doctor] - As per Instructions (Primary care provider [employer])
[2016-09-11 16:43] VITALS: BP 115/68; PULSE 85; RESP 18; TEMP 98.4; O2SAT 95
== END 2016-09-11 16:49 | disposition home or self-care (01) ==
DX: S53.401A Unspecified sprain of right elbow, initial encounter (principal); S63.501A Unspecified sprain of right wrist, initial encounter; F17.200 Nicotine dependence, unspecified, uncomplicated; V00.131A Fall from skateboard, initial encounter; Y99.8 Other external cause status; Y93.51 Activity, roller skating (inline) and skateboarding
CPT/HCPCS: A4565

== ENCOUNTER 2016-09-22 21:52 | Observation (INO) | payer MEDICAID ==
[2016-09-22] MEDS ORDERED: NS 1,000 ML IV ONE (22:15)
[2016-09-22] MEDS ORDERED: KETOROLAC 15 MG/1 ML SDV IVP ONE (22:19)
[2016-09-22] MEDS ORDERED: KETAMINE 100 MG/10 ML SYR IVP ONE (22:19)
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
[2016-09-22] MEDS ORDERED: IOPAMIDOL (ISOVUE-300) 100 ML BTL ONE (22:32)
[2016-09-22 22:33] LABS: % IMMATURE GRANULYOCYTES 0.1 % (0.0-1.1); ABSOLUTE IMMATURE GRANULOCYTES 0.01 10^3/uL (0.00-0.10); ADD DIFF? NO; ADD MORPH? NO; ADD SCAN? NO; ATYPICAL LYMPHOCYTE FLAG 20 (0-99); FRAGMENT RBC FLAG 0 (0-99); HEMATOCRIT 47.2 % (40.0-51.0); HEMOGLOBIN 16.2 g/dL (13.7-17.5); LEFT SHIFT FLG 0 (0-99); LIPEMIA HEMOLYSIS FLAG 90 (0-99); MEAN CELL HEMOGLOBIN 29.6 pg (27.9-34.1); MEAN CELL HEMOGLOBIN CONCENTR. 34.3 g/dL (32.4-36.7); MEAN CELL VOLUME 86.3 fL (81.5-99.8); MEAN PLATELET VOLUME 9.4 fL (8.7-11.7); PLATELET CLUMPS FLAG 0 (0-99); PLATELET COUNT 196 10^3/uL (150-400); RED BLOOD CELL COUNT 5.47 10^6/uL (4.40-6.38)
[2016-09-22 22:41] LABS: ANION GAP 13 mEq/L (8-16); CALCIUM 9.7 mg/dL (8.5-10.4); CARBON DIOXIDE 22 mEq/l (22-31); CHLORIDE 106 mEq/L (97-110); GLOMERULAR FILTRATION RATE > 60; GLUCOSE 98 mg/dL (70-100); POTASSIUM 3.4 mEq/L (3.5-5.2); SODIUM 141 mEq/L (134-144)
[2016-09-22] MEDS ORDERED: DIAZEPAM 10 MG/2 ML SYR IVP ONE (23:14)
[2016-09-23] MEDS ORDERED: NALOXONE HCL 0.4 MG/ML INJ IVP PRN (03:36)
[2016-09-23] MEDS ORDERED: HYDROmorphONE/DILAUDID 6 MG/30 ML PCA IV PRN (03:36)
[2016-09-23] MEDS: HYDROmorphONE/DILAUDID 1 MG/ML SYR IVP PRN ×4 (04:00→19:46)
[2016-09-23] MEDS ORDERED: D5W 1/2 NS 1,000 ML IV SCH (04:00)
[2016-09-23 05:01] LABS: % IMMATURE GRANULYOCYTES 0.2 % (0.0-1.1); ABSOLUTE IMMATURE GRANULOCYTES 0.01 10^3/uL (0.00-0.10); ADD DIFF? NO; ADD MORPH? NO; ADD SCAN? NO; ATYPICAL LYMPHOCYTE FLAG 10 (0-99); FRAGMENT RBC FLAG 0 (0-99); HEMATOCRIT 41.6 % (40.0-51.0); HEMOGLOBIN 14.3 g/dL (13.7-17.5); LEFT SHIFT FLG 0 (0-99); LIPEMIA HEMOLYSIS FLAG 90 (0-99); MEAN CELL HEMOGLOBIN 29.7 pg (27.9-34.1); MEAN CELL HEMOGLOBIN CONCENTR. 34.4 g/dL (32.4-36.7); MEAN CELL VOLUME 86.3 fL (81.5-99.8); MEAN PLATELET VOLUME 9.5 fL (8.7-11.7); PLATELET CLUMPS FLAG 20 (0-99); PLATELET COUNT 164 10^3/uL (150-400); RED BLOOD CELL COUNT 4.82 10^6/uL (4.40-6.38); RED CELL DISTRIBUTION WIDTH 13.1 % (11.5-15.2)
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
[2016-09-23] MEDS: clonazePAM 1 MG TAB PO SCH (09:41)
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
[2016-09-23] MEDS ORDERED: ALBUTEROL 60 PUFFS/8 GM MDI IH PRN (15:08)
[2016-09-23] MEDS ORDERED: ALBUTEROL 200 PUFFS/18 GM MDI IH PRN (15:10)
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
[2016-09-23 19:40] VITALS: RESP 16
[2016-09-23] MEDS: OXYCODONE/APAP 5/325 TAB PO PRN (19:45)
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
[2016-09-24] MEDS: OXYCODONE/APAP 5/325 TAB PO PRN ×2 (04:32→11:46)
[2016-09-24 05:36] LABS: HEMATOCRIT 41.4 % (40.0-51.0); HEMOGLOBIN 14.1 g/dL (13.7-17.5)
[2016-09-24] MEDS ORDERED: clonazePAM 1 MG TAB PO SCH (09:00)
[2016-09-24] MEDS: clonazePAM 1 MG TAB PO SCH (09:25)
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
[2016-09-24 11:51] VITALS: BP 121/87; PULSE 48; TEMP 97.9; O2SAT 95
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
== END 2016-09-24 14:07 | disposition home or self-care (01) ==
LOC: F3N 09-23 02:21
PROVIDERS: ADMIT Surgery; ATTEND Surgery
DX: S36.030A Superficial (capsular) laceration of spleen, initial encounter (principal); S89.92XA Unspecified injury of left lower leg, initial encounter; T14.8 Other injury of unspecified body region; Y04.0XXA Assault by unarmed brawl or fight, initial encounter
CPT/HCPCS: 70450; 70486; 71260; 72125; 72129; 72132; 72146; 73562; 73721; 74177; 92507; 92523; 96361; 96374; 96375; 96376; 97161; 99285; G0378; J1170; J1885; Q9967

== ENCOUNTER 2016-12-13 16:12 | Emergency (ER) | payer MEDICAID ==
[2016-12-13 16:19] VITALS: BP 140/77; PULSE 76; RESP 17; TEMP 97.9; O2SAT 96
--- NOTE | 2016-12-13 17:51 | EDPHY ---
H & P Time Seen by Provider: 12/13/16 17:37 HPI/ROS: CHIEF COMPLAINT: "I think I have a spider bite on my leg" HISTORY OF PRESENT ILLNESS: 26-year-old immunocompetent male with up-to-date tetanus complaining of 4 days of a progressive erythematous tender lesion right mid thigh. Positive inguinal tenderness. No fever no chills. No flu-like symptoms PHYSICAL EXAM (Prior to examination, patient consented to physical exam, hands were washed and my usual and customary physical exam procedures followed) 1) GENERAL: Well-developed, well-nourished, alert and oriented. Appears to be in no acute distress. 2) HEAD: Normocephalic 3) HEENT: sclera anicteric 4) LUNGS: Breathing comfortably. 5) SKIN: right mid, medial thigh erythematous tender furuncular lesion with no lymphangitic streaking. No crepitus. 6) MUSCULOSKELETAL: Soft compartments Smoking Status: Current some day smoker Constitutional: Initial Vital Signs Temperature (C) 36.6 C 12/13/16 16:16 Heart Rate 76 12/13/16 16:16 Respiratory Rate 17 12/13/16 16:16 Blood Pressure 140/77 H 12/13/16 16:16 O2 Sat (%) 96 12/13/16 16:16 O2 Delivery Mode Room Air Allergies/Adverse Reactions: No Known Allergies Allergy (Verified 12/13/16 16:15) Home Medications: Medication Instructions Recorded clonazePAM [klonoPIN (*)] 1 mg PO DAILY 04/22/15 Albuterol [Proventil Inhaler HFA 1 - 2 puffs IH DAILY PRN 09/23/16 (*)] Cephalexin [Keflex] 500 mg PO TID 10 Days cap 12/13/16 MDM/Departure - MDM ED Course/Re-evaluation: Patient has no history of chronic skin infections. Doubt necrotizing fasciitis. Does note progressive symptoms. Recommend warm compresses, starting , oral Keflex. Usual and customary wound precautions instructions provided. He feels comfortable being discharged - Depart Disposition: Home, Routine, Self-Care Clinical Impression: furuncle right thigh Condition: Good Instructions: Furunculosis and Carbunculosis (ED) Additional Instructions: Return to the ER if you develop redness, swelling, discharge, warmth to the wound, red streaks going up your leg, or any other symptoms that concern you. Apply warm compresses to your leg 4 times a day Prescriptions: Cephalexin [Keflex] 500 mg PO TID 10 Days cap Referrals: Betzaida Benjamin DO [Primary Care Provider] - 12/16/16
== END 2016-12-13 18:11 | disposition home or self-care (01) ==
DX: L02.425 Furuncle of right lower limb (principal); F17.200 Nicotine dependence, unspecified, uncomplicated

== ENCOUNTER 2016-12-31 15:47 | Emergency (ER) | payer MEDICAID ==
[2016-12-31 16:13] VITALS: RESP 16
[2016-12-31 16:38] LABS: STREP SCREEN RAPID NEGATIVE (NEGATIVE)
[2016-12-31] MEDS ORDERED: predniSONE 20 MG TAB PO ONE (17:16)
[2016-12-31] MEDS ORDERED: ALBUTEROL 3 ML DEYVIAL IH ONE (17:16)
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
[2016-12-31 18:34] VITALS: BP 112/76; PULSE 80; TEMP 98.6; O2SAT 98
== END 2016-12-31 18:34 | disposition home or self-care (01) ==
DX: J20.9 Acute bronchitis, unspecified (principal); J06.9 Acute upper respiratory infection, unspecified; J45.909 Unspecified asthma, uncomplicated; F17.200 Nicotine dependence, unspecified, uncomplicated

== ENCOUNTER → 2017-01-31 | Outpatient (CLI) | payer MEDICAID | LOC: FIMAGING 14:11 | PROVIDERS: ATTEND Family Medicine | DX: S36.039D Unspecified laceration of spleen, subsequent encounter (principal) ==

== ENCOUNTER 2017-03-12 13:23 | Emergency (ER) | payer MEDICAID ==
[2017-03-12 13:33] VITALS: RESP 16; TEMP 98.1
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
[2017-03-12] MEDS ORDERED: METOCLOPRAMIDE 10 MG/2 ML VIAL IVP ONE (14:02)
[2017-03-12] MEDS ORDERED: DEXAMETHASONE 10 MG/ML VIAL IVP ONE (14:02)
[2017-03-12 14:56] VITALS: O2SAT 95
[2017-03-12 16:26] VITALS: BP 110/71; PULSE 66
== END 2017-03-12 16:23 | disposition home or self-care (01) ==
DX: G43.009 Migraine without aura, not intractable, without status migrainosus (principal); F17.200 Nicotine dependence, unspecified, uncomplicated
CPT/HCPCS: 96374; J1100; J1200; J2765

== ENCOUNTER 2017-04-14 14:04 | Emergency (ER) | payer MEDICAID ==
[2017-04-14 14:18] VITALS: RESP 16; TEMP 97.9
[2017-04-14] MEDS ORDERED: KETOROLAC 15 MG/1 ML SDV IVP ONE (16:00)
[2017-04-14] MEDS ORDERED: NS 1,000 ML IV ONE (16:00)
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
[2017-04-14 16:09] LABS: PLATELET COUNT 217 10^3/uL (150-400)
[2017-04-14] MEDS ORDERED: KETAMINE 200 MG/20 ML VIAL IVP ONE (16:37)
[2017-04-14] MEDS ORDERED: CYCLOBENZAPRINE 10 MG TAB PO ONE (16:37)
[2017-04-14] MEDS ORDERED: LIDOCAINE 5% 1 EA PATCH TD ONE (16:37)
[2017-04-14 17:28] VITALS: BP 132/79; PULSE 56; O2SAT 94
[2017-04-14] MEDS ORDERED: PATCH REMOVAL 1 EA PATCH TD SCH (21:00)
== END 2017-04-14 17:28 | disposition home or self-care (01) ==
DX: M54.5 Low back pain (principal); J45.909 Unspecified asthma, uncomplicated; Z85.038 Personal history of other malignant neoplasm of large intestine; Z87.891 Personal history of nicotine dependence
CPT/HCPCS: 96374; J1885

== ENCOUNTER 2017-06-25 14:01 | Emergency (ER) | payer MEDICAID ==
[2017-06-25 14:30] VITALS: BP 104/76; PULSE 100; RESP 18; TEMP 98.6; O2SAT 98
== END 2017-06-25 16:49 | disposition left against medical advice (07) ==
DX: Z53.21 Procedure and treatment not carried out due to patient leaving prior to being seen by health care provider (principal)

== ENCOUNTER 2017-09-26 21:04 | Emergency (ER) | payer MEDICAID ==
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
[2017-09-26] MEDS ORDERED: HYDROmorphONE/DILAUDID 2 MG/ML INJ IVP ONE ×2 (21:30→21:55)
[2017-09-26] MEDS ORDERED: OXYCODONE/APAP 5/325MG PREPACK#4 BTL TAKEHOME ONE (22:42)
[2017-09-26 23:19] VITALS: BP 126/82
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
== END 2017-09-26 23:22 | disposition home or self-care (01) ==
PROC: 0HQ1XZZ Repair Face Skin, External Approach (ICD-10-PCS; principal; 2017-09-26)
DX: S02.40EA Zygomatic fracture, right side, initial encounter for closed fracture (principal); S01.112A Laceration without foreign body of left eyelid and periocular area, initial encounter; S02.31XA Fracture of orbital floor, right side, initial encounter for closed fracture; M50.20 Other cervical disc displacement, unspecified cervical region; F17.200 Nicotine dependence, unspecified, uncomplicated; V00.138A Other skateboard accident, initial encounter; Y92.830 Public park as the place of occurrence of the external cause; Y99.8 Other external cause status; Y93.51 Activity, roller skating (inline) and skateboarding
CPT/HCPCS: 96374; J1170; L0174